=== PATIENT | male | born 1960 | race Caucasian/White ===

== ENCOUNTER 2020-05-02 12:05 | Outpatient (CLI) | payer OTHER, SELFPAY ==
--- NOTE | ~2020-05-02 | XR_ITS ---
EXAMINATION: XR chest 2V DATE: 05/02/2020 12:23 INDICATION: Hypertension. Dyspnea. TECHNIQUE: Frontal and lateral views of the chest were obtained. COMPARISON: None. FINDINGS: The chest demonstrates clear lungs without pneumonia, pleural effusion, or pneumothorax. Th e heart size is normal. IMPRESSION: 1. No acute cardiopulmonary disease. Reviewed, dictated and finalized at location B. [facility]
== END 2020-05-02 12:06 | disposition home or self-care (01) ==
LOC: CHSLAB 12:09
PROVIDERS: PCP Internal Medicine; Visit Provider Internal Medicine
DX: R06.00 Dyspnea, unspecified (principal); I10 Essential (primary) hypertension
CPT/HCPCS: 71046

== ENCOUNTER 2021-07-06 01:34 | Day surgery (SDC) | payer OTHER, SELFPAY ==
[2021-06-21 13:01] VITALS: BMI 33.9
[2021-07-06 07:18] VITALS: BP 156/73; PULSE 67; RESP 20; TEMP 35.8; O2SAT 97; BMI 34.0
[2021-07-06] MEDS: LACTATED RINGERS 1,000 ML 150 ML IV CONT (07:32)
--- NOTE | 2021-07-06 07:57 | P.PNAN_ITS ---
Anes - Initial Pre Proc Eval Procedure: Operation Date: 07/06/21 08:30 Proposed Procedures p Screening Colonoscopy - Rico Zamudio DO Date/Time: 07/06/21 07:57 Surgeon: Rico Zamudio DO Pre Op Diagnosis: neoplasm screening, hemorrhoids Patient Data Age: 60 Gender: M Height: 1.83 m Weight: 114 kg Last Vital Signs Temp 96.4 F L 07/06/21 07:18 Pulse 67 07/06/21 07:18 Resp 20 07/06/21 07:18 BP 156/73 H 07/06/21 07:18 Pulse Ox 97 07/06/21 07:18 Allergies Allergy/AdvReac Type Severity Reaction Status Date / Time No Known Allergies Allergy Verified 06/21/21 12:57 Home Medications Medication Instructions Recorded Confirmed Type amlodipine 5 mg PO DAILY 06/21/21 06/21/21 History aspirin [Aspir-81] 81 mg PO DAILY 06/21/21 06/21/21 History carvedilol 25 mg PO DAILY 06/21/21 06/21/21 History rosuvastatin 40 mg PO DAILY 06/21/21 06/21/21 History cephalexin 750 mg PO Q12H 07/06/21 07/06/21 History Patient hx anesthesia problems: none Family hx anesthesia problems: none Results Review: All pre-operative results and documents have been reviewed as part of the pre-operative evaluation. [facility] Social History Social History Smoking status: Never smoker Alcohol intake: current Drinks per week: 4 Alcohol use details: 3-4 drinks weekly Substance use: never Substance use type: does not use Living arrangements: alone Spiritual care concerns: No Anes - Eval Final PreProcedure Day of Procedure 07/06/21 07:57 Patient weight: obese Heart: regular rate and rhythm Lungs: clear to auscultation Airway: Mallampati scale class III Neurological: alert and oriented Last oral intake: >/= 8 hours ASA classification: III Emergent: no Anesthetic plan: proceed Anesthesia type and monitoring: general GIVS and standard monitoring Results Review: All pre-operative results and documents have been reviewed as part of the pre-operative evaluation. Informed Consent: The patient's anesthetic plan and its attendant risks and benefits were discussed with the patient/family/POA. Questions were solicited and answers provided to the satisfaction of the patient/family/POA.
--- NOTE | 2021-07-06 08:16 | PM.IMHP ---
H&P: HPI History of Present Illness Date/Time: 07/06/21 08:16 Chief Complaint: Screening for colorectal cancer Narrative: this is a 60-year-old man who presents for colonoscopy. His last colonoscopy was 10-12 years ago. He does have some problems with hemorrhoids that occasionally swell and on very rare occasions causes some bright red bleeding. He denies any rectal pain. He denies any family history of colon cancer. Review of Systems Review of Systems: All systems reviewed & are unremarkable except as noted in HPI and below Constitutional: Constitutional: Denies chills, Denies fever(s), Denies headache(s) and Denies weight loss Eyes: Eyes: Denies change in vision ENT: Denies dizziness, Denies headache(s), Denies neck mass and Denies throat swelling Cardiovascular: Cardiovascular: Denies chest pain, Denies lightheadedness and Denies dyspnea Respiratory: Respiratory: Denies cough, Denies dyspnea and Denies wheezing Gastrointestinal: Gastrointestinal: Denies abdominal pain, Denies change in bowel habits, Denies nausea and Denies vomiting Genitourinary: Genitourinary: Denies hematuria and Denies dysuria Musculoskeletal: Musculoskeletal: Reports as per HPI Integumentary/Breasts: Skin/Breast: Reports as per HPI Neurologic: Denies dizziness and Denies headache(s) Allergic/Immunologic: Allergic/Immunologic: Denies throat swelling and Denies wheezing PMFSH Social History Social History Smoking status: Never smoker Alcohol intake: current Drinks per week: 4 Alcohol use details: 3-4 drinks weekly Substance use: never Substance use type: does not use Living arrangements: alone Spiritual care concerns: No Meds Home Medications and Allergies Home Medications Medication Instructions Recorded Confirmed Type amlodipine 5 mg PO DAILY 06/21/21 06/21/21 History aspirin [Aspir-81] 81 mg PO DAILY 06/21/21 06/21/21 History carvedilol 25 mg PO DAILY 06/21/21 06/21/21 History rosuvastatin 40 mg PO DAILY 06/21/21 06/21/21 History cephalexin 750 mg PO Q12H 07/06/21 07/06/21 History Allergies Allergy/AdvReac Type Severity Reaction Status Date / Time No Known Allergies Allergy Verified 06/21/21 12:57 Vital Signs Vital Signs - 24 hr 07/06/21 07:18 Temperature 35.8 C L Pulse Rate 67 Respiratory Rate 20 Blood Pressure 156/73 H Pulse Oximetry 97 Exam Const: General: no acute distress and alert Orientation/consciousness: patient oriented x3 HENMT: Head: normocephalic and atraumatic Ears: hearing grossly normal bilaterally General nose exam: Normal nares present Mouth: Yes Normal oral and palatal mucosa present Eyes: Periorbital: periorbital findings normal Sclera: sclerae normal EOM: EOMs intact bilaterally Neck: Neck: normal visual inspection, no lymphadenopathy and trachea midline Chest: Chest palpation & inspection: normal inspection of the chest Resp: Effort & Inspection: normal respiratory effort Auscultation: clear to auscultation bilaterally Cardio: Jugular venous distension: no JVD Rate: regular rate Rhythm: regular rhythm Heart sounds: S1 normal heart sound present and S2 normal heart sound present Peripheral pulses: Peripheral pulses 2+ throughout GI: Inspection: normal to inspection GI Palp: Yes Soft to palpation, No Tenderness to palpation present (GI), No Guarding due to palpation present (GI), Yes Hernia present ( 3-4 cm umbilical hernia) and No Rebound tenderness present Percussion: Yes normal to percussion Auscultation: normal bowel sounds : General: Yes no CVA tenderness Back/Spine/Pelvis: Back: no CVA tenderness Neuro: General: patient oriented x3, no focal motor deficits and CN's II-XI intact bilaterally Cognition (Neuro): normal cognition Speech: normal speech Motor exam (neuro): 5/5 motor strength present throughout Extrem: General: capillary refill normal and no clubbing, cyanosis or edema Assessment and Plan Assessment and plan (1) S
[2021-07-06 08:53] VITALS: BP 120/55; PULSE 60; RESP 20; O2SAT 96
[2021-07-06 09:03] VITALS: BP 125/74; PULSE 54; RESP 20; O2SAT 98
[2021-07-06 09:13] VITALS: BP 132/76; PULSE 52; RESP 20; O2SAT 99
== END 2021-07-06 09:25 | disposition home or self-care (01) ==
PROVIDERS: PCP Internal Medicine; Visit Provider Surgery
PROC: 0DJD8ZZ Inspection of Lower Intestinal Tract, Via Natural or Artificial Opening Endoscopic (ICD-10-PCS; CPT 45378; principal; 2021-07-06 08:30)
DX: Z12.11 Encounter for screening for malignant neoplasm of colon (principal); K64.8 Other hemorrhoids; Z79.82 Long term (current) use of aspirin; E66.9 Obesity, unspecified; Z68.34 Body mass index [BMI] 34.0-34.9, adult
CPT/HCPCS: 45378; J2704; J7120

== ENCOUNTER 2022-12-03 11:47 | Outpatient (CLI) | payer OTHER, SELFPAY ==
--- NOTE | 2022-12-03 11:58 | ECG_ITS ---
Measurements Intervals [place] Rate: 58 P: 42 [place]: 193 QRS: 71 QRSD: 102 T: 50 QT: 394 QTc: 388 Interpretive Statements SINUS BRADYCARDIA BASELINE ARTIFACT BORDERLINE ECG NO PREVIOUS ECG AVAILABLE FOR COMPARISON Electronically Signed On 12-03-2022 17:28:38 CDT by Jasson Cochran M.D.
== END 2022-12-03 11:48 | disposition home or self-care (01) ==
PROVIDERS: PCP Surgery; Visit Provider Anesthesiology
DX: Z01.818 Encounter for other preprocedural examination (principal); I10 Essential (primary) hypertension; R00.1 Bradycardia, unspecified
CPT/HCPCS: 93005

== ENCOUNTER 2022-12-26 06:15 | Day surgery (SDC) | payer OTHER, SELFPAY ==
[2022-12-03 11:04] VITALS: BMI 34.0
--- NOTE | 2022-12-03 11:22 | PC.NURSE ---
Addendum entered by Netta Aldana RN 12/03/22 11:23: INSTR ON HIBICLENS SHOWER MORNING OF SURGERY AND INSTR NOT TO SHAVE HAIR PRIOR TO SURGERY. PT RELAYS UNDERSTANDING. Original Note: Report to the Outpatient Waiting Room, entrance under the [place] [facility] located off [facility], at time __10:00AM on date __12/05/22 . Planned Procedure Time: __12:00PM . Time changes happen often and if your time is changed the preop area will call you the afternoon before. - You and your visitor will be asked to self-screen and do not enter if you have any COVID symptoms. - A mask is optional within the hospital at this time. Patients may have clear liquids (water, carbonated beverages, clear teas, apple juice) until 3 hours prior to surgery with a maximum of 20 ounces. - No food from midnight until time of surgery Take the following medications with a SIP of water the morning of surgery: ___AMLODIPINE & CARVEDILOL DO NOT STOP ANY OF YOUR OTHER PRESCRIPTION MEDICATIONS PRIOR TO SURGERY ?EXCEPT THE FOLLOWING Medications to discontinue per physician ___NONE Date to take last dose Please no make-up, nail luxembourgish, hairspray, perfume, deodorant, or body powder the day of surgery. No jewelry (including any body piercings) or valuables the day of surgery, leave them at home. Please take a shower or bath the night before, or the morning of, surgery with an antibacterial soap. Wear comfortable, loose fitting clothing. Children are encouraged to wear pajamas. - Jewelry must be removed prior to entering the operating room. Rings and piercings that are not removed may be cut off. - The hospital will not accept responsibility for valuables. - Please leave all valuables, including medications, at home the day of surgery. If you are going home after surgery, a licensed otr refrigerated cdl truck driver must drive you home. - NO public transportation without another adult if you receive anesthesia. - We recommend that an adult stay with you for 24 hours following discharge. - We also recommend that you do not drive, make important decision, drink alcoholic beverages, or take any drugs that were not prescribed by your health care provider for at least 24 hours after your discharge time. Follow any additional instructions given to you from your surgeon. If you or anyone in your household have experienced Covid symptoms in the past week, please notify your surgeon or the nurse liaison at the phone number below for possible testing. Telephone instructions given to __PATIENT and asked if any additional questions and then verbalized understanding. Patient advised to call surgeon office or pre surgery nurse liaison [phone] if any additional questions.
--- NOTE | 2022-12-18 10:56 | PC.NURSE ---
Pt states no changes in medications or health history since initial interview. New pre-op instructions reviewed with pt. Pt denies further questions at this time.
--- NOTE | 2022-12-18 10:56 | PC.NURSE ---
Report to the Outpatient Waiting Room, entrance under the [facility] pavilion located off [facility], at time 1030 on date 12/26/22. Planned Procedure Time: 1230. Time changes happen often and if your time is changed the preop area will call you the afternoon before. - You and your visitor will be asked to self-screen and do not enter if you have any COVID symptoms. - A mask is optional within the hospital at this time. Patients may have clear liquids (water, carbonated beverages, clear teas, apple juice) until 3 hours prior to surgery with a maximum of 20 ounces. - No food from midnight until time of surgery Take the following medications with a SIP of water the morning of surgery: AMLODIPINE, CARVEDILOL DO NOT STOP ANY OF YOUR OTHER PRESCRIPTION MEDICATIONS PRIOR TO SURGERY ?EXCEPT THE FOLLOWING Medications to discontinue per physician: N/A Date to take last dose: N/A Please no make-up, nail venezuelan, hairspray, perfume, deodorant, or body powder the day of surgery. No jewelry (including any body piercings) or valuables the day of surgery, leave them at home. Please take a shower or bath the night before, or the morning of, surgery with an antibacterial soap (HIBICLENS). Wear comfortable, loose fitting clothing. - Jewelry must be removed prior to entering the operating room. Rings and piercings that are not removed may be cut off. - The hospital will not accept responsibility for valuables. - Please leave all valuables, including medications, at home the day of surgery. If you are going home after surgery, a licensed [employer] driver must drive you home. - NO public transportation without another adult if you receive anesthesia. - We recommend that an adult stay with you for 24 hours following discharge. - We also recommend that you do not drive, make important decision, drink alcoholic beverages, or take any drugs that were not prescribed by your health care provider for at least 24 hours after your discharge time. Follow any additional instructions given to you from your surgeon. If you or anyone in your household have experienced Covid symptoms in the past week, please notify your surgeon or the nurse liaison at the phone number below for possible testing. Telephone instructions given to PT - KATHY JUNG and asked if any additional questions and then verbalized understanding. Patient advised to call surgeon office or pre surgery nurse liaison [phone] if any additional questions.
--- NOTE | 2022-12-24 13:47 | WPDANESEPPF ---
Anes - Initial Pre Proc Eval Procedure: Operation Date: 12/26/22 12:30 Proposed Procedures p Laparoscopic Umbilical Hernia Repair with Mesh, Davinci Assisted - Rico Zamudio DO Date/Time: 12/24/22 13:47 Surgeon: Rioc Zamudio DO Pre Op Diagnosis: umbilical hernia Patient Data Age: 62 Gender: M Height: 1.83 m Weight: 114 kg Allergies Allergy/AdvReac Type Severity Reaction Status Date / Time No Known Allergies Allergy Verified 12/18/22 10:55 Home Medications Medication Instructions Recorded Confirmed Type amlodipine 5 mg tablet 5 mg PO QAM 06/21/21 12/18/22 History aspirin 81 mg tablet,delayed 81 mg PO DAILY 06/21/21 12/18/22 History release carvedilol 25 mg tablet 25 mg PO BID 06/21/21 12/18/22 History rosuvastatin 40 mg tablet 40 mg PO DAILY 06/21/21 12/18/22 History ECG: Date of Service: 12/03/22 Procedure(s): CA 12 lead EKG Accession Number(s): [id number] cc: ~ ? Measurements Intervals? [place]? Rate: ? 58 ? P:? 42 [place]: ? 193? QRS:? 71 QRSD: ? 102? T:? 50 QT: ? 394? QTc:? 388? Interpretive Statements SINUS BRADYCARDIA BASELINE ARTIFACT BORDERLINE ECG NO PREVIOUS ECG AVAILABLE FOR COMPARISON Electronically Signed On 12-03-2022 17:28:38 CDT by Jasson Cochran M.D. Patient hx anesthesia problems: none Family hx anesthesia problems: none Results Review: All pre-operative results and documents have been reviewed as part of the pre-operative evaluation. PMFSH Past Medical History Medical History (Updated 12/24/22 @ 13:48 by Mika Sparks MD) HTN (hypertension) Hyperlipidemia Obesity Surgical History Surgical History History of colonoscopy 07/06/21 Social History Social History Smoking status: Never smoker Alcohol intake: current Drinks per week: 3 Alcohol use details: 3-4 drinks weekly Substance use: never Substance use type: does not use Living arrangements: with family Additional living arrangements comments: Spiritual care concerns: No Anes - Eval Final PreProcedure Day of Procedure 12/24/22 13:47 Patient weight: obese Heart: regular rate and rhythm Lungs: clear to auscultation Airway: Mallampati scale class III Neurological: alert and oriented Last oral intake: >/= 8 hours ASA classification: III Emergent: no Anesthetic plan: proceed Anesthesia type and monitoring: general ETT and standard monitoring Results Review: All pre-operative results and documents have been reviewed as part of the pre-operative evaluation. Informed Consent: The patient's anesthetic plan and its attendant risks and benefits were discussed with the patient/family/POA. Questions were solicited and answers provided to the satisfaction of the patient/family/POA.
[2022-12-26] VITALS (8 sets, daily range): BP systolic 137–169; BP diastolic 65–78; PULSE 48–63; RESP 16–18; TEMP 36.2–36.9; O2SAT 95–100
--- NOTE | 2022-12-26 10:56 | WPDHPUPDATE1 ---
History and Physical Update Update Date/Time: 12/26/22 10:56 History and Physical has been reviewed, including an updated exam of the patient. There are NO changes in the patient's condition. Risks, benefits, and alternatives have been discussed and questions answered. Patient agrees to proceed with procedure.
--- NOTE | 2022-12-26 10:56 | PM.IMHP ---
H&P: HPI History of Present Illness Date/Time: 12/26/22 10:56 Chief Complaint: umbilical hernia Narrative: 62 yo man presents for umbilical hernia repair. He reports no changes since last seen in office. Review of Systems Review of Systems: All systems reviewed & are unremarkable except as noted in HPI and below Constitutional: Constitutional: Denies chills, Denies fever(s), Denies headache(s) and Denies weight loss Eyes: Eyes: Denies change in vision ENT: Denies dizziness, Denies headache(s), Denies neck mass and Denies throat swelling Cardiovascular: Cardiovascular: Denies chest pain, Denies lightheadedness and Denies dyspnea Respiratory: Respiratory: Denies cough, Denies dyspnea and Denies wheezing Gastrointestinal: Gastrointestinal: Denies abdominal pain, Denies change in bowel habits, Denies nausea and Denies vomiting Genitourinary: Genitourinary: Denies hematuria and Denies dysuria Musculoskeletal: Musculoskeletal: Reports as per HPI Integumentary/Breasts: Skin/Breast: Reports as per HPI Neurologic: Denies dizziness and Denies headache(s) Allergic/Immunologic: Allergic/Immunologic: Denies throat swelling and Denies wheezing [facility] Past Medical History Medical History (Updated 12/24/22 @ 13:48 by Mika Sparks MD) HTN (hypertension) Hyperlipidemia Obesity Surgical History Surgical History History of colonoscopy 07/06/21 Social History Social History Smoking status: Never smoker Alcohol intake: current Drinks per week: 3 Alcohol use details: 3-4 drinks weekly Substance use: never Substance use type: does not use Living arrangements: with family Additional living arrangements comments: Spiritual care concerns: No Meds Home Medications and Allergies Home Medications Medication Instructions Recorded Confirmed Type amlodipine 5 mg tablet 5 mg PO QAM 06/21/21 12/18/22 History aspirin 81 mg tablet,delayed 81 mg PO DAILY 06/21/21 12/18/22 History release carvedilol 25 mg tablet 25 mg PO BID 06/21/21 12/18/22 History rosuvastatin 40 mg tablet 40 mg PO DAILY 06/21/21 12/18/22 History Allergies Allergy/AdvReac Type Severity Reaction Status Date / Time No Known Allergies Allergy Verified 12/18/22 10:55 Exam Const: General: no acute distress and alert Orientation/consciousness: patient oriented x3 HENMT: Head: normocephalic and atraumatic Ears: hearing grossly normal bilaterally Face/Nose/Sinus: Normal nares present Mouth: Yes Normal oral and palatal mucosa present Eyes: Periorbital: periorbital findings normal Sclera: sclerae normal EOM: EOMs intact bilaterally Neck: Neck: normal visual inspection, no lymphadenopathy and trachea midline Chest: Chest palpation & inspection: normal inspection of the chest Resp: Effort & Inspection: normal respiratory effort Auscultation: clear to auscultation bilaterally Cardio: Jugular venous distension: no JVD Rate: regular rate Rhythm: regular rhythm Heart sounds: S1 normal heart sound present and S2 normal heart sound present Peripheral pulses: Peripheral pulses 2+ throughout GI: Inspection: normal to inspection GI Palp: Yes Soft to palpation, No Tenderness to palpation present (GI), No Guarding due to palpation present (GI), Yes Hernia present (3-4 cm umbilical hernia) and No Rebound tenderness present Percussion: Yes normal to percussion Auscultation: normal bowel sounds : General: Yes no CVA tenderness Back/Spine/Pelvis: Back: no CVA tenderness Neuro: General: patient oriented x3, no focal motor deficits and CN's II-XI intact bilaterally Cognition (Neuro): normal cognition Speech: normal speech Motor exam (neuro): 5/5 motor strength present throughout Extrem: General: capillary refill normal and no clubbing, cyanosis or edema Assessment and Plan Assessment and plan (1) Umb
[2022-12-26] MEDS: KETOROLAC 15 MG/ML VIAL (*BKC) IV PUSH (11:01)
[2022-12-26] MEDS: ACETAMINOPHEN 500 MG TABLET 1000 MG PO (11:01)
[2022-12-26] MEDS: LACTATED RINGERS 1,000 ML 30 ML IV CONT ×2 (11:01→14:31)
--- NOTE | 2022-12-26 12:21 | SUR.PREOP ---
pt informed delay in procedure.
[2022-12-26] MEDS: ceFAZolin 2 GM/D5W 50 ML 2 GM/50 ML BAG IVPB (12:47)
[2022-12-26] MEDS: BUPIVACAINE/EPINEPHRINE 0.5% 10 ML VIAL 30 ML INFILTRATE (14:07)
--- NOTE | 2022-12-26 14:22 | W.PM.PROC2 ---
Procedure Note - Detailed Date of Procedure 12/26/22 Pre-op Diagnosis umbilical hernia Post-op Diagnosis Same (3cm Umbilical hernia) Procedure Performed Laparoscopic 3 cm Umbilical Hernia Repair with Mesh, da Yanelis assisted Surgeon Rico Zamudio DO Anesthesia General and Local (Exparel) Indications this is a 62-year-old man who presents with an umbilical bulge that he noticed about 5-6 years ago. It has gradually become larger and is now protruding out from his skin. He does frequently get redness of his umbilical skin as well. He denied any change of bowel habits. He was found to have a moderate-sized umbilical hernia containing fat. Discussions were made with the patient about treatment options and decision was made to proceed with robotic assisted laparoscopic umbilical hernia repair with mesh. Findings Laparoscopic umbilical hernia repair was performed. The umbilical hernia was containing some omentum but this was reducible. The hernia measured 3 cm wide. A robotic intraperitoneal onlay mesh technique was utilized for the repair. Preperitoneal fat and umbilical hernia sac was excised to allow adequate visualization of the surrounding fascia. The hernia defect was closed using 0 Stratafix running absorbable suture. A Ventralight ST 15 cm x 10 cm mesh was placed to reinforce the repair. Description of Procedure Procedure as well as risks, benefits, and alternatives were discussed with the patient. Written consent was obtained and placed in chart prior to procedure. Patient was brought back to surgical suite. He was placed supine on operating table. Time-out was done to confirm patient and procedure. he was then intubated by the anesthesia department. A bump was placed under his left hip, and the bed was flexed slightly to extend the space between his costal margin and iliac crest. his abdomen was prepped and draped in sterile fashion using chlorhexidine prep. A 5 millimeter incision was made in the left upper quadrant, and a 5 millimeter Optiview trocar was advanced through the abdominal layers under direct visualization. Once inside the abdominal cavity, carbon dioxide insufflation was used to create a pneumoperitoneum. his abdomen was inspected. An 8 millimeter incision was made in the left lower quadrant, and an 8 millimeter robotic trocar was placed under direct visualization. Another 8 millimeter incision was made in the left lateral abdomen, and an 8 millimeter robotic trocar was placed under direct visualization. The 5 millimeter port was removed, and another 8 mm port was placed at this location. The robotic arms were brought up to the patient's bedside and secured to the ports. The camera and instruments were inserted, and I then moved over to the robotic console and took control of the camera and instruments. After careful thorough inspection of the abdominal cavity, I began my dissection at the hernia. the preperitoneal fat and hernia sac was excised using scissors with electrocautery. I then measured the hernia size. The hernia measured 3 cm. The fascia was closed using an 0-Stratafix running suture in a vertical fashion. A Ventralight ST 15 cm x 10 cm mesh was then placed within the abdominal cavity. This was oriented vertically with the mesh centered on the hernia defect. The mesh was then secured at the center in 4 corners using 3-0 Vicryl simple interrupted sutures. The mesh was then secured around the entire perimeter using 2 0 V lock running absorbable suture. The repair was inspected, and one final inspection was made around the abdominal cavity. The robotic instruments were then removed, and the robotic arms were disengaged from the trocars. The ports were then removed under direct visualization, the camera was removed, and the pneumoperitoneum was released. The skin of the incisions was then approximated using 4-0 Monocryl subcuticular suture. Exofin glue was then applied on top. The patient
[2022-12-26] MEDS: oxyCODONE HCL (*CRX) 5 MG TAB IR PO ×2 (15:42→15:43)
== END 2022-12-26 16:30 | disposition home or self-care (01) ==
PROVIDERS: PCP Internal Medicine; Visit Provider Surgery
PROC: (CPT 49593; principal; 2022-12-26 12:30)
DX: K42.9 Umbilical hernia without obstruction or gangrene (principal); I10 Essential (primary) hypertension; E78.5 Hyperlipidemia, unspecified; Z79.82 Long term (current) use of aspirin; E66.9 Obesity, unspecified; Z68.32 Body mass index [BMI] 32.0-32.9, adult
CPT/HCPCS: 49593; S2900; 36415; 86850; 86900; 86901; A9270; C1781; J0330; J0690; J1100; J1170; J1885; J2250; J2405; J2704; J2710; J3010; J7120

== ENCOUNTER 2024-02-06 11:30 | Outpatient (CLI) | payer OTHER, SELFPAY ==
--- NOTE | ~2024-02-06 | CT_ITS ---
EXAMINATION: CT soft tissue neck w con DATE: 02/06/2024 14:03 INDICATION: Right posterior neck pain. Parapharyngeal abscess. TECHNIQUE: Computed tomography (CT) of the neck was performed with 75 mL Omnipaque-350 intravenous co ntrast. Automated exposure control and iterative reconstruction technique were employed. The dose-thomas gth product was 493.62 mGy-cm. COMPARISON: None FINDINGS: There are no pathologically enlarged lymph nodes. There are calcifications in the palatine tonsils. The larynx is normal. There is no abscess. There is plaque in the proximal internal carotid arteries with less than 50% stenosis relative to normal distal artery lumen diameters. There is mucos al thickening in the paranasal sinuses. The mastoid air cells are normal. There is moderate cervical spondylosis. IMPRESSION: 1. No abscess. Reviewed, dictated and finalized at location A. IMPRESSION: 1. No abscess.
[2024-02-06 11:41] LABS: Basophils Absolute Auto 0.04 K/mm3 (0.00-0.10); Basophils Percent Auto 0.5 % (0.0-1.0); Eosinophils Absolute Auto 0.17 K/mm3 (0.02-0.50); Eosinophils Percent Auto 2.1 % (1.0-6.0); Hemoglobin 15.5 g/dL (12.4-15.3); Immature Granulocyte Absolute 0.02 K/mm3 (0.00-0.00); Immature Granulocyte Percent A 0.2 % (0.0-0.0); Lymphocytes Absolute Auto 1.03 K/mm3 (1.10-4.50); Lymphocytes Percent Auto 12.5 % (18.0-42.0); Mean Corpuscular HGB Conc 35.2 g/dL (32-36); Mean Corpuscular Hemoglobin 32.4 pg (27.0-31.0); Mean Corpuscular Volume 91.9 fL (78.0-102.0); Mean Platelet Volume 9.2 fl (8.7-11.0); Monocytes Percent Auto 9.7 % (2.0-11.0); Neutrophils Absolute Auto 6.18 K/mm3 (1.70-7.20); Platelet Count Result 243 K/mm3 (150-420); Red Blood Count 4.79 M/mm3 (4.70-6.10); Red Cell Distribution Width 12.2 % (11.6-14.4); White Blood Count 8.2 K/mm3 (4.8-10.8)
[2024-02-06 12:17] LABS: Strep Group A RT-PCR NOT DETECTED (Negative)
[2024-02-06 12:49] LABS: Erythrocyte Sedimentation Rate 9 mm/hr (0-20)
[2024-02-06 13:26] LABS: Estimated Glomerular Filt Rate > 60
[2024-02-06 13:31] LABS: Alanine Aminotransferase 39 U/L (16-63); Albumin Level 4.2 g/dL (3.4-5.0); Alkaline Phosphatase 79 U/L (46-116); Anion Gap 9 mmol/L (4-12); Aspartate Amino Transferase 17 U/L (15-37); Bilirubin,Total 1.1 mg/dL (0.00-1.00); Blood Urea Nitrogen 7 mg/dL (7-18); Calcium 9.2 mg/dL (8.5-10.1); Carbon Dioxide 27 mmol/L (21-32); Chloride 100 mmol/L (98-108); Glucose 98 mg/dL (70-99); Osmolality Calculated 280 mOsm/kg (285-295); Potassium 4.5 mmol/L (3.5-5.1); Sodium 136 mmol/L (136-145); Total Protein 7.3 g/dL (6.4-8.2)
== END 2024-02-06 11:31 | disposition home or self-care (01) ==
PROVIDERS: PCP Internal Medicine; Visit Provider Internal Medicine
DX: M54.2 Cervicalgia (principal); J39.0 Retropharyngeal and parapharyngeal abscess
CPT/HCPCS: 36415; 70491; 80053; 85025; 85652; 86140; 87651; Q9967

== ENCOUNTER 2024-02-11 13:10 | Outpatient (CLI) | payer OTHER, SELFPAY ==
--- NOTE | ~2024-02-11 | US_ITS ---
EXAMINATION: US carotid duplex BI DATE: 02/11/2024 13:40 INDICATION: Carotid stenosis. Carotid atherosclerosis. TECHNIQUE: Grayscale, color Doppler, and pulsed Doppler images of the cervical carotid arteries were obtained. The degree of vessel stenosis is placed in one of the following categories: normal, <50%, 5 0-69%, >=70% but less than near-occlusion, near-occlusion, or total occlusion. Note that percent sten osis relative to normal distal artery lumen diameter is indirectly measured from velocity measurement s as described by Julian, et al. Radiology 2003; 229:340-346. COMPARISON: Neck CT 02/06/2024 FINDINGS: RIGHT: The right common carotid artery (CCA) peak systolic velocity (PSV) is 135 cm/s. The right internal ca rotid artery (ICA) PSV is 91 cm/s. The right ICA end-diastolic velocity (EDV) is 23 cm/s. The right I CA/CCA PSV ratio is 0.7. Grayscale and color Doppler images yield an estimate of <50% diameter reduct ion from plaque in the ICA. There is antegrade flow in the right vertebral artery. LEFT: The left CCA PSV is 108 cm/s. The left ICA PSV is 71 cm/s. The left ICA EDV is 23 cm/s. The left ICA/ CCA PSV ratio is 0.7. Grayscale and color Doppler images yield an estimate of <50% diameter reduction from plaque in the ICA. There is antegrade flow in the left vertebral artery. IMPRESSION: 1. <50% stenosis in the right internal carotid artery. 2. <50% stenosis in the left internal carotid artery. Reviewed, dictated and finalized at location A.
== END 2024-02-11 13:11 | disposition home or self-care (01) ==
PROVIDERS: PCP Internal Medicine; Visit Provider Internal Medicine
DX: I65.23 Occlusion and stenosis of bilateral carotid arteries (principal)
CPT/HCPCS: 93880